=== PATIENT | female | born 1990 | race Caucasian/White ===

== ENCOUNTER 2017-12-08 05:08 | Emergency (ER) | payer MEDICAID, BC ==
[2017-12-08] MEDS: HYDROCODONE/APAP (5/325) TAB PO (06:02)
== END 2017-12-08 07:43 | disposition home or self-care (01) ==
LOC: E/R 05:08
DX: S42.022A Displaced fracture of shaft of left clavicle, initial encounter for closed fracture (principal); S69.91XA Unspecified injury of right wrist, hand and finger(s), initial encounter; F17.210 Nicotine dependence, cigarettes, uncomplicated; V49.00XA Driver injured in collision with unspecified motor vehicles in nontraffic accident, initial encounter
CPT/HCPCS: 73000; 73030; 73110-RT; 73120; 81025; 99284-25